=== PATIENT | female | born 1985 | race Caucasian/White ===

== ENCOUNTER 2016-03-10 21:10 | Emergency (ER) | payer OTHER ==
[~2016-03-10] VITALS: Ht 162.6 cm; Wt 61.3 kg
[~2016-03-10 21:10] MED LIST: ACETAMINOPHEN500 MG PO; ACYCLOVIR; ACYCLOVIR800 MG PO; ADDERALL XR 2020 MG PO; ALPRAZOLAM2 MG PO; AMOXICILLIN500 M1 PO; AMOXICILLIN875 MG PO; Acyclovir PO; BENTYL10 MG PO; BIRTH CONTROL PATCH TD; CLEOCIN300 MG PO; CLINDAMYCIN HC300 MG PO; EFFEXOR XR150 MG PO; ENDOCET 5-3251 EACH PO; FIORICET,ESG1 TABLET PO; FLEXERIL10 MG PO; FLEXERIL5 MG PO; FLINTSTONES M100 MCG PO; FLINTSTONES1 TABLET PO; HYDROCODON-ACE1 EAC7 PO; IBUPROFEN800 MG PO; IMITREX25 MG PO; LIDODERM 5% P1 PATCH PO; LIDODERM 5% P1 PATCH TD; LYRICA50 MG PO; MACROBID100 MG PO; METHOCARBAMOL500 MG PO; MOBIC15 MG PO; MOTRIN600 MG PO; MOTRIN800 MG PO; Motrin PO; NAPROXEN500 MG PO; NORCO 5/3251 TABLET PO; PEN-VEE K,VEET500 MG PO; PERCOCET 5/31 TABLET PO; PROMETHAZINE HC25 M1 PO; Percocet 5/325,Endoc PO; REGLAN10 MG PO; RITALIN20 MG PO; ROBITUSSIN NIG118 ML PO; ROLAIDS PO; TORADOL10 MG PO; TRAMADOL HCL50 MG PO; ULTRACET1 TABLET PO; ULTRAM50 MG PO; VALIUM5 MG PO; VALTREX50 MG/ML PO; VICODIN 5-3001 EACH PO; VOLTAREN50 MG PO; XANAX; XANAX XR1 MG PO; XANAX0.5 MG PO; XANAX1 MG PO; XULANE PATCH1 EACH TD; XYLOCAINE VISC100 ML MM; ZITHROMAX Z-PA250 MG PO; ZOFRAN ODT4 MG PO; ZOVIRAX400 MG PO
[2016-03-10] MEDS ORDERED: LYRICA50 MG PO (22:01)
[2016-03-10] MEDS ORDERED: ROBAXIN500 MG PO (22:02)
[2016-03-10] MEDS ORDERED: NORCO 5/3251 TABLET PO ×2 (22:02→22:50)
[2016-03-10 23:06] VITALS: BP 121/71
== END 2016-03-10 23:19 | disposition home or self-care (01) ==
LOC: EME 21:10 → EXP 21:10
DX: M79.605 Pain in left leg (principal); G89.29 Other chronic pain; Z88.6 Allergy status to analgesic agent; Z88.1 Allergy status to other antibiotic agents
CPT/HCPCS: 99281; 99283

== ENCOUNTER 2016-04-18 22:23 | Emergency (ER) | payer OTHER ==
[~2016-04-18] VITALS: Ht 165.1 cm; Wt 63.5 kg
[~2016-04-18 22:23] MED LIST changes: +ROBAXIN500 MG PO
[2016-04-18 22:56] VITALS: BP 125/90
== END 2016-04-18 23:59 | disposition left against medical advice (07) ==
LOC: EME 22:23
DX: M25.511 Pain in right shoulder (principal); F17.200 Nicotine dependence, unspecified, uncomplicated
CPT/HCPCS: 73030; 99281; 99282

== ENCOUNTER 2016-05-03 10:44 | Emergency (ER) | payer OTHER ==
[~2016-05-03] VITALS: Ht 165.1 cm; Wt 62.8 kg
[2016-05-03 11:02] VITALS: BP 110/67
[2016-05-03] MEDS ORDERED: VALACYCLOVIR1000 MG PO (11:19)
[2016-05-03] MEDS ORDERED: NORCO 5/3251 TABLET PO (11:21)
[2016-05-03] MEDS ORDERED: MOUTH SORE15 ML MM (11:23)
== END 2016-05-03 11:54 | disposition home or self-care (01) ==
LOC: EME 10:44
DX: B00.9 Herpesviral infection, unspecified (principal); R68.84 Jaw pain
CPT/HCPCS: 99281; 99283

== ENCOUNTER 2016-06-11 05:42 | Emergency (ER) | payer OTHER ==
[~2016-06-11] VITALS: Ht 167.6 cm; Wt 65.5 kg
[~2016-06-11 05:42] MED LIST changes: +MOUTH SORE15 ML MM; +VALACYCLOVIR1000 MG PO
[2016-06-11 06:04] LABS: HEMATOCRIT 30.9 % (36.0-46.0); MCH 29.1 PG (29.0-34.0); MCHC 33.7 G/DL (30.0-36.0); MCV 86.3 FL (83-99); MEAN PLAT.VOLUME 9.4 uM^3 (9.5-12.4); PLATELET COUNT 245 K/uL (156-360); RBC DIS.WIDTH-CV 13.4 % (11.8-14.6); RBC DIS.WIDTH-SD 42.3 % (39-53); RED BLOOD COUNT 3.58 M/uL (3.80-5.20); WHITE BLOOD COUNT 10.6 K/uL (4.1-10.2)
[2016-06-11 06:16] LABS: CHLORIDE 101 mEq/L (99-109); POTASSIUM 3.6 mEq/L (3.7-5.4); SODIUM 134 mEq/L (136-147)
[2016-06-11 06:18] LABS: GLUCOSE 74 mg/dL (70-99)
[2016-06-11 06:19] LABS: ANION GAP 9 MEQ/L (2-14)
[2016-06-11 06:21] LABS: D-DIMER ELISA 1.04 mg/L FEU (< 0.57)
[2016-06-11 06:22] LABS: GFR ESTIMATE (CALCULATED) > 59 mL/min/
[2016-06-11 06:23] LABS: UREA NITROGEN (BUN) 6 mg/dL (9-23)
[2016-06-11 06:26] LABS: TROP-I INTERPRETATION NEGATIVE; TROPONIN-I < 0.01 ng/mL (0.0-0.30)
[2016-06-11 07:57] VITALS: BP 110/63
== END 2016-06-11 08:16 | disposition left against medical advice (07) ==
LOC: EME 05:42
PROVIDERS: Emergency Medicine
DX: O26.892 Other specified pregnancy related conditions, second trimester (principal); R07.9 Chest pain, unspecified; R94.31 Abnormal electrocardiogram [ECG] [EKG]; R79.1 Abnormal coagulation profile; R05 Cough; R51 Headache; O21.9 Vomiting of pregnancy, unspecified; O99.332 Smoking (tobacco) complicating pregnancy, second trimester; Z3A.20 20 weeks gestation of pregnancy; F17.200 Nicotine dependence, unspecified, uncomplicated
CPT/HCPCS: 71010; 80048; 84484; 85027; 85379; 93005; 94640; 99281; 99285; J1200; J2765; J7030

== ENCOUNTER 2016-06-13 17:51 | Emergency (ER) | payer OTHER ==
[~2016-06-13] VITALS: Ht 167.6 cm; Wt 63.8 kg
[2016-06-13 18:57] LABS: ADD MIUA? YES; BILIRUBIN NEGATIVE; BLOOD SMALL; COLOR YELLOW ((YELLOW)); GLUCOSE (STRIP) NEGATIVE; KETONES NEGATIVE; LEUKOCYTES MODERATE; NITRITE NEGATIVE; PROTEIN (STRIP) NEGATIVE; SPECIFIC GRAVITY 1.015 (1.000-1.030); UROBILINOGEN 0.2 MG/DL (0.2-1.0)
[2016-06-13 19:32] LABS: RED BLOOD CELLS 0-5 /HPF (0-5)
[2016-06-13 19:33] LABS: BACTERIA 2+ /HPF; EPITHELIAL CELLS 3+ /HPF; MUCUS NONE SEEN /LPF; UCUL ADDED? YES
[2016-06-13] MEDS ORDERED: MACROBID100 MG PO (19:47)
[2016-06-13] MEDS ORDERED: DELSYM30 MG/5 M1 PO (20:09)
[2016-06-13] MEDS ORDERED: LIDODERM 5% P1 PATCH TD (20:09)
[2016-06-13] MEDS ORDERED: TUSSIN15 MG/5 M1 PO (20:10)
[2016-06-13 20:22] VITALS: BP 110/76
== END 2016-06-13 20:23 | disposition home or self-care (01) ==
LOC: EXP 17:51 → EME 17:51 → EXP 20:23
PROVIDERS: Nurse Practitioner Family
DX: O23.42 Unspecified infection of urinary tract in pregnancy, second trimester (principal); R05 Cough; O99.332 Smoking (tobacco) complicating pregnancy, second trimester; G89.29 Other chronic pain; F11.90 Opioid use, unspecified, uncomplicated; Z3A.22 22 weeks gestation of pregnancy; K21.9 Gastro-esophageal reflux disease without esophagitis
CPT/HCPCS: 71020; 81003; 87086; 99281; 99285

== ENCOUNTER 2016-07-10 20:58 | Emergency (ER) | payer OTHER ==
[~2016-07-10] VITALS: Ht 167.6 cm; Wt 66.7 kg
[~2016-07-10 20:58] MED LIST changes: +DELSYM30 MG/5 M1 PO; +TUSSIN15 MG/5 M1 PO
[2016-07-10 23:02] VITALS: BP 112/80
== END 2016-07-10 23:03 | disposition home or self-care (01) ==
LOC: RME 20:58 → EME 20:58 → RME 23:03
DX: G43.909 Migraine, unspecified, not intractable, without status migrainosus (principal); F17.200 Nicotine dependence, unspecified, uncomplicated; Z88.5 Allergy status to narcotic agent; Z88.6 Allergy status to analgesic agent; Z88.1 Allergy status to other antibiotic agents; Z88.8 Allergy status to other drugs, medicaments and biological substances
CPT/HCPCS: 99281; 99284; J1100

== ENCOUNTER 2016-07-28 09:56 | Emergency (ER) | payer OTHER ==
[~2016-07-28] VITALS: Ht 165.1 cm; Wt 66.0 kg
[2016-07-28] MEDS ORDERED: NORCO 5/3251 TABLET PO (11:36)
[2016-07-28 12:25] VITALS: BP 117/78
== END 2016-07-28 12:26 | disposition home or self-care (01) ==
LOC: EME 09:56
DX: S63.501A Unspecified sprain of right wrist, initial encounter (principal); W23.0XXA Caught, crushed, jammed, or pinched between moving objects, initial encounter; Z33.1 Pregnant state, incidental
CPT/HCPCS: 73110; 99281; 99284

== ENCOUNTER 2016-08-22 00:09 | Emergency (ER) | payer OTHER ==
[~2016-08-22] VITALS: Ht 165.1 cm; Wt 69.1 kg
[2016-08-22 00:32] VITALS: BP 114/81
== END 2016-08-22 01:50 | disposition left against medical advice (07) ==
LOC: EME 00:09
DX: M79.605 Pain in left leg (principal); Z79.891 Long term (current) use of opiate analgesic; Z53.21 Procedure and treatment not carried out due to patient leaving prior to being seen by health care provider

== ENCOUNTER 2016-09-14 05:39 | Emergency (ER) | payer OTHER ==
[~2016-09-14] VITALS: Ht 165.1 cm; Wt 70.9 kg
[2016-09-14] MEDS ORDERED: PEN-VEE K,VEET500 MG PO (06:15)
[2016-09-14 06:24] VITALS: BP 127/90
== END 2016-09-14 06:24 | disposition home or self-care (01) ==
LOC: EME 05:39
DX: O99.619 Diseases of the digestive system complicating pregnancy, unspecified trimester (principal); K04.7 Periapical abscess without sinus; K02.9 Dental caries, unspecified; K03.81 Cracked tooth; O99.330 Smoking (tobacco) complicating pregnancy, unspecified trimester; F17.200 Nicotine dependence, unspecified, uncomplicated
CPT/HCPCS: 99281; 99283

== ENCOUNTER 2016-09-21 00:01 | Outpatient (CLI) | payer OTHER ==
[~2016-09-21] VITALS: Ht 165.1 cm; Wt 65.8 kg
[2016-09-21 00:35] VITALS: BP 119/71
[2016-09-21] MEDS ORDERED: VICODIN 5-3001 EACH PO (01:23)
== END 2016-09-21 02:11 | disposition home or self-care (01) ==
LOC: LDRP-OP 00:01 → 2WEST 00:02 → LDRP-OP 11-18 13:37
DX: O26.893 Other specified pregnancy related conditions, third trimester (principal); S39.91XA Unspecified injury of abdomen, initial encounter; W50.0XXA Accidental hit or strike by another person, initial encounter; Z3A.33 33 weeks gestation of pregnancy
CPT/HCPCS: 59025; 76805; G0378

== ENCOUNTER 2016-09-26 22:27 | Emergency (ER) | payer OTHER ==
[~2016-09-26] VITALS: Ht 165.1 cm; Wt 72.7 kg
[2016-09-26 23:07] LABS: EOSINOPHIL (%) 0.6 % (0-5); EOSINOPHIL COUNT 0.1 K/uL (0-0.3); HEMATOCRIT 29.2 % (36.0-46.0); IMMATURE GRANULOCYTE (%) 0.4 % (0.0-0.7); INSTRUMENT ABS NEUTROPHIL CT 5.9 K/uL; LYMPHOCYTE COUNT 1.9 K/uL (1.0-2.8); MCH 28.4 PG (29.0-34.0); MCHC 33.2 G/DL (30.0-36.0); MCV 85.4 FL (83-99); MEAN PLAT.VOLUME 10.3 uM^3 (9.5-12.4); MONOCYTE (%) 7.2 % (3-12); MONOCYTE COUNT 0.6 K/uL (0-0.8); NEUTROPHIL COUNT 5.9 K/uL (1.8-6.4); PLATELET COUNT 217 K/uL (156-360); RBC DIS.WIDTH-SD 46.2 % (39-53); RED BLOOD COUNT 3.42 M/uL (3.80-5.20); WHITE BLOOD COUNT 8.6 K/uL (4.1-10.2)
[2016-09-26 23:17] VITALS: BP 111/80
[2016-09-26 23:18] LABS: CHLORIDE 100 mEq/L (99-109); POTASSIUM 3.2 mEq/L (3.7-5.4); SODIUM 134 mEq/L (136-147)
[2016-09-26 23:20] LABS: GLUCOSE 100 mg/dL (70-99)
[2016-09-26 23:22] LABS: ANION GAP 10 MEQ/L (2-14); TOTAL BILIRUBIN 0.2 mg/dL (0.0-1.0)
[2016-09-26 23:24] LABS: ALKALINE PHOSPHATASE 156 IU/L (3-129); GFR ESTIMATE (CALCULATED) > 59 mL/min/
[2016-09-26 23:25] LABS: UREA NITROGEN (BUN) 5 mg/dL (9-23)
[2016-09-26 23:30] LABS: TROP-I INTERPRETATION NEGATIVE; TROPONIN-I < 0.01 ng/mL (0.0-0.30)
== END 2016-09-26 23:23 | disposition left against medical advice (07) ==
LOC: EME 22:27
PROVIDERS: Emergency Medicine
DX: R07.9 Chest pain, unspecified (principal); Z3A.38 38 weeks gestation of pregnancy; K21.9 Gastro-esophageal reflux disease without esophagitis; F17.200 Nicotine dependence, unspecified, uncomplicated; Z98.890 Other specified postprocedural states; Z88.5 Allergy status to narcotic agent; Z88.1 Allergy status to other antibiotic agents; Z88.8 Allergy status to other drugs, medicaments and biological substances
CPT/HCPCS: 80053; 84484; 85025; 93005; 99281; 99283

== ENCOUNTER 2016-10-11 20:26 | Emergency (ER) | payer OTHER ==
[~2016-10-11] VITALS: Ht 165.1 cm; Wt 72.2 kg
[2016-10-11 20:29] VITALS: BP 160/98
[2016-10-13] MEDS ORDERED: ACYCLOVIR PO (10:24)
[2016-10-13] MEDS ORDERED: PEN-VEE K,VEET500 MG PO (10:25)
[2016-10-13] MEDS ORDERED: NORCO 5/3251 TABLET PO (10:26)
[2016-10-13] MEDS ORDERED: IRON325 M1 PO (10:49)
== END 2016-10-11 21:45 | disposition left against medical advice (07) ==
LOC: RME 20:26 → EME 20:26 → RME 21:45
DX: O26.893 Other specified pregnancy related conditions, third trimester (principal); R51 Headache; O16.3 Unspecified maternal hypertension, third trimester; O99.333 Smoking (tobacco) complicating pregnancy, third trimester; F17.200 Nicotine dependence, unspecified, uncomplicated; Z3A.39 39 weeks gestation of pregnancy; Z88.6 Allergy status to analgesic agent
CPT/HCPCS: 80053; 81003; 85027

== ENCOUNTER 2016-10-14 08:31 | Inpatient (IN) | payer OTHER ==
[~2016-10-14] VITALS: Ht 165.1 cm; Wt 72.6 kg
[2016-10-14] VITALS (7 sets, daily range): BP systolic 129–163; BP diastolic 66–97
[~2016-10-14 08:31] MED LIST changes: +ACYCLOVIR PO; +IRON325 M1 PO
[2016-10-14] MEDS ORDERED: XANAX0.5 MG PO (09:09)
[2016-10-14 09:37] LABS: HEMATOCRIT 32.1 % (36.0-46.0); MCH 29.1 PG (29.0-34.0); MCHC 34.3 G/DL (30.0-36.0); MCV 84.9 FL (83-99); MEAN PLAT.VOLUME 10.9 uM^3 (9.5-12.4); PLATELET COUNT 190 K/uL (156-360); RBC DIS.WIDTH-CV 15.5 % (11.8-14.6); RBC DIS.WIDTH-SD 46.4 % (39-53); RED BLOOD COUNT 3.78 M/uL (3.80-5.20)
[2016-10-14 14:07] LABS: AMPHETAMINE NEGATIVE (500 ng/mL); BARBITURATES NEGATIVE (200 ng/mL); BENZODIAZEPINES PRESUMPTIVE POSITIVE (150 ng/mL); COCAINE NEGATIVE (150 ng/mL); INTERNAL CONTROLS VALID? YES; METHADONE NEGATIVE (200 ng/mL); METHAMPHETAMINE NEGATIVE (500 ng/mL); OPIATES (MORPHINE) PRESUMPTIVE POSITIVE (100 ng/mL); OXYCODONE NEGATIVE (100 ng/mL); PHENCYCLIDINE NEGATIVE (25 ng/mL); PROPOXYPHENE NEGATIVE (300 ng/mL); THC CANNABINOIDS NEGATIVE (50 ng/mL); TRICYCLIC ANTIDEPRESSANTS NEGATIVE (300 ng/mL)
[2016-10-14 14:08] LABS: ADD MEDTOX COMMENT Y
[2016-10-14 14:26] LABS: BENZODIAZEPINES QUANT VALUE 0 NG/ML; BENZODIAZEPINES, URINE SCREEN Negative (200 ng/mL)
[2016-10-15 04:34] VITALS: BP 129/81
[2016-10-15 07:14] LABS: EOSINOPHIL (%) 0.3 % (0-5); HEMATOCRIT 28.7 % (36.0-46.0); IMMATURE GRANULOCYTE (%) 0.6 % (0.0-0.7); IMMATURE GRANULOCYTE COUNT 0.1 K/uL; INSTRUMENT ABS NEUTROPHIL CT 8.8 K/uL; LYMPHOCYTE COUNT 1.7 K/uL (1.0-2.8); MCH 28.7 PG (29.0-34.0); MCHC 33.8 G/DL (30.0-36.0); MCV 84.9 FL (83-99); MEAN PLAT.VOLUME 10.7 uM^3 (9.5-12.4); MONOCYTE (%) 6.2 % (3-12); MONOCYTE COUNT 0.7 K/uL (0-0.8); NEUTROPHIL (%) 77.5 % (45-76); NEUTROPHIL COUNT 8.8 K/uL (1.8-6.4); PLATELET COUNT 205 K/uL (156-360); RBC DIS.WIDTH-CV 15.3 % (11.8-14.6); RBC DIS.WIDTH-SD 45.9 % (39-53); RED BLOOD COUNT 3.38 M/uL (3.80-5.20); WHITE BLOOD COUNT 11.4 K/uL (4.1-10.2)
[2016-10-15 07:47] VITALS: BP 122/72
[2016-10-15 12:18] VITALS: BP 136/71
[2016-10-15 15:20] VITALS: BP 122/66
[2016-10-15 19:51] VITALS: BP 150/95
[2016-10-15 22:32] VITALS: BP 142/85
[2016-10-16 02:52] VITALS: BP 125/69
[2016-10-16 07:27] VITALS: BP 125/77
[2016-10-16] MEDS ORDERED: IBUPROFEN800 MG PO (07:59)
[2016-10-16] MEDS ORDERED: OXYCODONE-APAP1 EACH PO (07:59)
== END 2016-10-16 13:25 | disposition home or self-care (01) | DRG 765 ==
LOC: 2SOUTH → 2WEST 08:31 → 2SOUTH 13:10 → 2WEST 10-16 13:25
PROVIDERS: Obstetrics & Gynecology
DX: O34.219 Maternal care for unspecified type scar from previous cesarean delivery (principal); O69.81X0 Labor and delivery complicated by cord around neck, without compression, not applicable or unspecified; F11.20 Opioid dependence, uncomplicated; O98.32 Other infections with a predominantly sexual mode of transmission complicating childbirth; O99.324 Drug use complicating childbirth; O99.334 Smoking (tobacco) complicating childbirth; O99.340 Other mental disorders complicating pregnancy, unspecified trimester; O99.344 Other mental disorders complicating childbirth; F41.9 Anxiety disorder, unspecified; A60.00 Herpesviral infection of urogenital system, unspecified; F17.200 Nicotine dependence, unspecified, uncomplicated; Z37.0 Single live birth; Z3A.39 39 weeks gestation of pregnancy; Y92.481 Parking lot as the place of occurrence of the external cause; Z30.2 Encounter for sterilization; Z91.19 Patient's noncompliance with other medical treatment and regimen; Z87.410 Personal history of cervical dysplasia
CPT/HCPCS: 84999; 85025; 85027; 86900; 86901; 88302; J0690; J1100; J1170; J1885; J2250; J2274; J2405; J3010; J7120

== ENCOUNTER 2016-11-09 22:12 | Emergency (ER) | payer OTHER ==
[~2016-11-09] VITALS: Ht 165.1 cm; Wt 67.3 kg
[~2016-11-09 22:12] MED LIST changes: +OXYCODONE-APAP1 EACH PO
[2016-11-10 00:38] VITALS: BP 120/78
== END 2016-11-10 00:39 | disposition home or self-care (01) ==
LOC: EME 22:12
DX: O90.0 Disruption of cesarean delivery wound (principal); F17.200 Nicotine dependence, unspecified, uncomplicated
CPT/HCPCS: 76705; 99281; 99283

== ENCOUNTER 2016-11-29 19:24 | Emergency (ER) | payer OTHER ==
[~2016-11-29] VITALS: Ht 165.1 cm; Wt 63.7 kg
[2016-11-29] MEDS ORDERED: ULTRAM50 MG PO (20:14)
[2016-11-29 20:45] VITALS: BP 113/67
== END 2016-11-29 20:46 | disposition home or self-care (01) ==
LOC: EME 19:24
DX: O90.2 Hematoma of obstetric wound (principal); G89.29 Other chronic pain; G43.909 Migraine, unspecified, not intractable, without status migrainosus; A60.00 Herpesviral infection of urogenital system, unspecified; F41.9 Anxiety disorder, unspecified; Z88.8 Allergy status to other drugs, medicaments and biological substances; F17.200 Nicotine dependence, unspecified, uncomplicated
CPT/HCPCS: 87070; 87075; 87205; 99281; 99284

== ENCOUNTER 2017-04-17 22:23 | Emergency (ER) | payer OTHER ==
[~2017-04-17] VITALS: Ht 167.6 cm; Wt 63.0 kg
[2017-04-17] MEDS ORDERED: CLINDAMYCIN HC300 MG PO (23:59)
[2017-04-17] MEDS ORDERED: INDOCIN50 MG PO (23:59)
[2017-04-17] MEDS ORDERED: ULTRACET1 TABLET PO (23:59)
[2017-04-18 00:52] VITALS: BP 113/82
== END 2017-04-18 00:53 | disposition home or self-care (01) ==
LOC: RME 22:23 → EME 22:23 → RME 04-18 00:53
DX: K04.7 Periapical abscess without sinus (principal); F17.200 Nicotine dependence, unspecified, uncomplicated; Z88.5 Allergy status to narcotic agent; Z88.1 Allergy status to other antibiotic agents; Z88.8 Allergy status to other drugs, medicaments and biological substances
CPT/HCPCS: 99281; 99284

== ENCOUNTER 2017-08-13 21:53 | Emergency (ER) | payer OTHER ==
[~2017-08-13] VITALS: Ht 167.6 cm; Wt 63.8 kg
[~2017-08-13 21:53] MED LIST changes: +INDOCIN50 MG PO
[2017-08-13] MEDS ORDERED: VICODIN 5-3001 EACH PO (22:55)
[2017-08-13 23:20] VITALS: BP 115/68
== END 2017-08-13 23:28 | disposition home or self-care (01) ==
LOC: RME 21:53 → EME 21:53 → RME 23:28
DX: S90.32XA Contusion of left foot, initial encounter (principal); S90.812A Abrasion, left foot, initial encounter; W23.0XXA Caught, crushed, jammed, or pinched between moving objects, initial encounter; Y93.E6 Activity, residential relocation; Z88.5 Allergy status to narcotic agent; Z88.6 Allergy status to analgesic agent
CPT/HCPCS: 73630; 99281; 99284

== ENCOUNTER 2017-10-05 02:19 | Emergency (ER) | payer SELFPAY ==
[~2017-10-05] VITALS: Ht 167.6 cm; Wt 63.1 kg
[2017-10-05 02:30] VITALS: BP 131/89
== END 2017-10-05 02:54 | disposition home or self-care (01) ==
LOC: EME 02:19
DX: G89.29 Other chronic pain (principal); M54.9 Dorsalgia, unspecified; Z88.5 Allergy status to narcotic agent; Z88.6 Allergy status to analgesic agent

== ENCOUNTER 2017-10-22 20:52 | Emergency (ER) | payer SELFPAY ==
[~2017-10-22] VITALS: Ht 167.6 cm; Wt 61.3 kg
[2017-10-22 21:09] LABS: APPEARANCE CLEAR ((CLEAR)); BILIRUBIN NEGATIVE; BLOOD SMALL; COLOR COLORLESS ((YELLOW)); GLUCOSE (STRIP) NEGATIVE; KETONES NEGATIVE; LEUKOCYTES TRACE; NITRITE NEGATIVE; PROTEIN (STRIP) NEGATIVE; SPECIFIC GRAVITY 1.002 (1.000-1.030); UROBILINOGEN 0.2 MG/DL (0.2-1.0)
[2017-10-22 21:14] LABS: BACTERIA NONE SEEN /HPF; EPITHELIAL CELLS RARE /HPF; MUCUS TRACE /LPF; RED BLOOD CELLS 0-5 /HPF (0-5); UCUL ADDED? NO; WHITE BLOOD CELLS 0-5 /HPF (0-5)
[2017-10-22 22:37] VITALS: BP 133/96
== END 2017-10-22 22:38 | disposition left against medical advice (07) ==
LOC: EME 20:52
DX: R31.9 Hematuria, unspecified (principal); Z53.21 Procedure and treatment not carried out due to patient leaving prior to being seen by health care provider
CPT/HCPCS: 81003; 81025; 99281; 99283